=== PATIENT | female | born 1995 | race African-American/Black ===

== ENCOUNTER 2018-03-14 09:44 | Emergency (ER) | payer OTHER ==
[~2018-03-14] VITALS: Ht 162.6 cm; Wt 80.0 kg
[2018-03-14 09:57] VITALS: BP 125/65; PULSE 81; RESP 18; TEMP 98.7; O2SAT 100
--- NOTE | 2018-03-14 10:30 | PD ---
HPI . Knee pain Chief Complaint: Musculoskeletal Complaint Time Seen by Provider: 10:06 Travel History International Travel<30 days: No Contact w/Intl Traveler<30days: No History of Present Illness HPI Patient presents with a chief complaint of left knee pain and swelling. She states that she was playing basketball approximately a month ago when she came down on her knee and felt a pop. She denies any obvious dislocation of the knee. She states that the knee will become more painful and swollen while she is up on her feet but will then get better when she is resting. Her symptoms are also improved with ice. She rates her pain this morning at 8/10. PFSH Past Medical History Medical History: Denies Significant Hx Tetanus Vaccination: Unknown Influenza Vaccination: No ?: Not Past Surgical History Surgical History: No Previous Surgery Social History Alcohol Use: No Tobacco Use: No Substance Use: No Allergies-Medications (Allergen,Severity, Reaction): Coded Allergies: No Known Allergies (Unverified , 03/14/18) Reported Meds & Prescriptions Reported Meds & Active Scripts Active No Active Prescriptions or Reported Medications Review of Systems Except as stated in HPI: all other systems reviewed are Neg Musculoskeletal: Positive: Arthralgias, Edema Physical Exam Narrative GENERAL: Awake and alert and in no acute distress. SKIN: warm/dry. Normal color and turgor. HEAD: Normocephalic. Atraumatic. EYES: Pupils equal and round. No scleral icterus. No injection or drainage. ENT: No nasal bleeding or discharge. Mucous membranes pink and moist. NECK: Trachea midline. Full range of motion without pain.. CARDIOVASCULAR: Regular rate and rhythm. RESPIRATORY: No accessory muscle use. MUSCULOSKELETAL: Left knee has no swelling or deformity. It is stable. No pain with manipulation of the knee. Distally neurovascularly intact. NEUROLOGICAL: Awake and alert. No obvious cranial nerve deficits. Motor grossly within normal limits. Normal speech. PSYCHIATRIC: Appropriate mood and affect; insight and judgment normal. Data Data Last Documented VS Vital Signs Date Time Temp Pulse Resp B/P (MAP) Pulse Ox O2 Delivery O2 Flow Rate FiO2 03/14/18 09:57 98.7 81 18 125/65 (85) 100 Orders Orders Knee, Complete (4vws) (03/14/18 10:07) [facility] Medical Decision Making Medical Screen Exam Complete: Yes Emergency Medical Condition: Yes Differential Diagnosis Differential diagnosis of extremity trauma includes but is not limited to fracture, sprain or strain, dislocation, contusion Narrative Course This patient presents for the evaluation of a left knee injury which occurred about a month ago. X-rays have been ordered. Last Impressions Knee X-Ray 03/14/18 1007 Signed Impressions: CONCLUSION: Normal exam The x-ray was independently reviewed by me. Diagnosis Primary Impression: Left knee injury Qualified Codes: S89.92XA - Unspecified injury of left lower leg, initial encounter Referrals: Rush Farooq MD Patient Instructions: General Instructions, RICE Therapy (ED) Scripts No Active Prescriptions or Reported Meds Disposition: 01 DISCHARGE HOME Condition: Stable Aarti Brown MD Mar 14, 2018 10:30
--- NOTE | 2018-03-14 10:42 | RADRPT ---
EXAM DATE: 03/14/2018 10:28 AM EDT AGE/SEX: 23 years / Female INDICATIONS: Left knee pain. Patient hurt it one month ago playing basketball. Pain while standing. CLINICAL DATA: This is the patient's initial encounter. Patient reports that signs and symptoms have been present for 1 month and indicates a pain score of 5/10. MEDICAL/SURGICAL HISTORY: None. None. COMPARISON: No prior [place] exams available for comparison. FINDINGS: Bony structures are intact and in normal alignment. Joints are intact without dislocation or signifi cant arthropathy. Osseous density is normal. Soft tissues are unremarkable. No radiopaque foreign bodies seen. CONCLUSION: Normal exam Electronically signed by: Kathi Diego MD 03/14/2018 10:40 AM EDT
== END 2018-03-14 11:26 | disposition home or self-care (01) ==
LOC: NEPD 09:44
DX: S89.92XA Unspecified injury of left lower leg, initial encounter (principal); X58.XXXA Exposure to other specified factors, initial encounter; Y93.67 Activity, basketball
CPT/HCPCS: 73564; 99283